=== PATIENT | male | born 1990 | race American Indian/Alaskan Native ===

== ENCOUNTER 2020-01-18 14:00 | Emergency (ER) | payer SELFPAY ==
[2020-01-18 14:24] VITALS: BP 105/78
--- NOTE | 2020-01-18 14:44 | Emergency Department Report ---
ED General Adult HPI - General Chief complaint: Eye Problems Stated complaint: LT EYE INFECTION Time Seen by Provider: 01/18/20 14:40 Source: patient Mode of arrival: Ambulatory Limitations: No Limitations - History of Present Illness Initial comments: 29-year-old -[place] male patient presents with complaints of left eye watering and crusting shut x3 days. He denies any pain or vision changes or trauma to his eye. He states he has not tried any OTC medications. He denies any prior medical history or contact lens wearing. Severity scale (0 -10): 0 - Related Data Previous Rx's Medication Instructions Recorded Last Taken Type Ketotifen Fumarate [Zaditor] 2 drop OP QID 10 Days #1 bottle 01/18/20 Unknown Rx Allergies Allergy/AdvReac Type Severity Reaction Status Date / Time No Known Allergies Allergy Unverified 01/18/20 14:22 ED Review of Systems ROS: Stated complaint: LT EYE INFECTION Other details as noted in HPI Constitutional: denies: chills, fever, malaise Eyes: eye discharge (Green). denies: eye pain, vision change Respiratory: denies: cough, shortness of breath Cardiovascular: denies: chest pain Skin: denies: rash, change in color Neurological: denies: headache ED Past Medical Hx - Past Medical History Previous Medical History?: No - Surgical History Past Surgical History?: No - Medications Home Medications: Home Medications Medication Instructions Recorded Confirmed Last Taken Type Ketotifen Fumarate [Zaditor] 2 drop OP QID 10 Days #1 bottle 01/18/20 Unknown Rx ED Physical Exam - General Limitations: No Limitations General appearance: alert, in no apparent distress - Head Head exam: Present: atraumatic, normocephalic - Eye Eye exam: Present: PERRL, EOMI, other (Watering noted to left eye with green thick discharge noted to the inner corner; no swelling or tenderness to palpation of the noted). Absent: scleral icterus, conjunctival injection - Neck Neck exam: Present: normal inspection, full ROM - Respiratory Respiratory exam: Absent: respiratory distress - Cardiovascular Cardiovascular Exam: Present: regular rate - Neurological Exam Neurological exam: Present: alert, oriented X3 - Psychiatric Psychiatric exam: Present: normal affect, normal mood - Skin Skin exam: Present: warm, dry, intact, normal color. Absent: rash, cyanosis, d iaphoretic, ecchymosis ED Course Vital Signs 01/18/20 14:22 Temperature 97.9 F Pulse Rate 57 L Respiratory 18 Rate Blood Pressure 105/78 [Right] O2 Sat by Pulse 100 Oximetry ED Medical Decision Making - Medical Decision Making 29-year-old -[place]ish male patient presents with complaints of left eye watering and crusting shut x3 days. He denies any pain or vision changes or trauma to his eye. He states he has not tried any OTC medications. He denies any prior medical history or contact lens wearing. Will treat for viral conjunctivitis with antihistamines. Recommend follow-up with PCP in 3 days. Strict return precautions were discussed in detail with patient who verbalizes understanding peer Critical care attestation.: If time is entered above; I have spent that time in minutes in the direct care of this critically ill patient, excluding procedure time. ED Disposition Clinical Impression: Viral conjunctivitis of left eye Disposition: DC-01 TO HOME OR SELFCARE Is pt being admited?: No Condition: Stable Instructions: Viral Conjunctivitis, Adult Prescriptions: Ketotifen Fumarate [Zaditor] 2 drop OP QID 10 Days #1 bottle Referrals: [facility] [Provider Group] - 3-5 Days
== END 2020-01-18 15:50 | disposition home or self-care (01) ==
LOC: ED 14:00
DX: B30.9 Viral conjunctivitis, unspecified (principal); Z79.899 Other long term (current) drug therapy
CPT/HCPCS: 99282